=== PATIENT | female | born 1950 | race Caucasian/White ===

== ENCOUNTER 2017-05-15 06:32 | Emergency (ER) | payer SELFPAY ==
[~2017-05-15] VITALS: Ht 167.6 cm; Wt 110.0 kg
[~2017-05-15 06:32] MED LIST: GLUCTAB PO; LEVO.025 PO; LISI-366 PO; PERC5TAB12 PO; SENO8.6T6 PO; TAB-TAB PO; TAMS0.4C67 PO; ZOFR4TAB3 SL
[2017-05-15 06:38] VITALS: BP 211/95; PULSE 99; RESP 20; TEMP 98.4; O2SAT 97
[2017-05-15] MEDS ORDERED: SODIUM CHLOR 0.9% 1000 ML INJ 1,000 ML IV SCH (07:11)
[2017-05-15] MEDS ORDERED: ONDANSETRON HCL 4 MG/2 ML VIAL IVP ONE (07:15)
[2017-05-15] MEDS ORDERED: KETOROLAC TROMETHAMINE 30 MG/ML (IVP) VIAL IVP ONE (07:15)
[2017-05-15] MEDS ORDERED: SODIUM CHLORIDE 0.9% FLUSH 10 ML FLUSH IV FLUSH PRN (07:15)
--- NOTE | 2017-05-15 07:22 | PD ---
HPI Chief Complaint: Flank/Kidney Pain Time Seen by Provider: 07:11 Travel History International Travel<30 days: No Contact w/Intl Traveler<30days: No Traveled to known affect area: No History of Present Illness HPI 66 y/o female presents with left flank pain and nausea that has been present for the past couple of days. She states she had a kidney stone once before about 3 years ago and does not know if that is what is going on but she is also having nausea and upper abdominal pain. She denies any other concurrent complaints. Quality is pressure. Severity is moderate. She denies specific modifying factors. She states that when she had a kidney stone before it passed on its own. She denies specific migration of the pain. PFSH Past Medical History Arthritis: Yes Anxiety: No Cancer: Yes (BCC) High Cholesterol: Yes Diabetes: Yes Diminished Hearing: No Endocrine: Yes Gastrointestinal Disorders: Yes (GERD) GERD: Yes Genitourinary: No Hepatitis: No Hiatal Hernia: Yes Hypertension: Yes Immune Disorder: No Musculoskeletal: Yes (ARTHRITIS; BACK AND NECK) Neurologic: No Psychiatric: No Reproductive: No Respiratory: No Migraines: Yes (ok now) Thyroid Disease: Yes Menopausal: Yes Past Surgical History Abdominal Surgery: Yes (APPENDECTOMY; 04/01 [facility] GASTRIC BY-PASS with Dr. Barraza) Appendectomy: Yes Section: Yes Gynecologic Surgery: Yes ( ; TUBAL LIGATION) Joint Replacement: Yes (left knee) Oral Surgery: Yes (T&A) Pacemaker: No Other Surgery: Yes Social History Alcohol Use: No Tobacco Use: No Substance Use: No Allergies-Medications (Allergen,Severity, Reaction): Coded Allergies: morphine (Unverified Allergy, Severe, INTENSE ITCHING, 05/15/17) adhesive (Unverified Allergy, Intermediate, Rash, 05/15/17) Reported Meds & Prescriptions Reported Meds & Active Scripts Active [place] (Hydrocodone-Acetaminophen) 5 Mg-325 Mg Tab 1 Tab PO Q6H PRN Review of Systems Except as stated in HPI: all other systems reviewed are Neg Physical Exam Narrative GENERAL: 66-year-old female in no apparent distress SKIN: Focused skin assessment warm/dry. HEAD: Atraumatic. Normocephalic. EYES: No scleral icterus. No injection or drainage. ENT: No nasal bleeding or discharge. Mucous membranes pink and moist. NECK: Trachea midline. No JVD. CARDIOVASCULAR: Regular rate and rhythm. RESPIRATORY: No accessory muscle use. Clear to auscultation. Breath sounds equal bilaterally. GASTROINTESTINAL: Abdomen soft, tender upper abdomen, nondistended. MUSCULOSKELETAL: No obvious deformities. No clubbing. No cyanosis. No edema back: No CVA tenderness. No midline pain NEUROLOGICAL: Awake and alert. No obvious cranial nerve deficits. Motor grossly within normal limits. Normal speech. PSYCHIATRIC: Appropriate mood and affect; insight and judgment normal. Data Data Last Documented VS Vital Signs Date Time Temp Pulse Resp B/P (MAP) Pulse Ox O2 Delivery O2 Flow Rate FiO2 05/15/17 08:50 05/15/17 08:35 79 16 95 Room Air 05/15/17 06:38 98.4 Orders Orders Complete Blood Count With Diff (05/15/17 07:11) Comprehensive Metabolic Panel (05/15/17 07:11) Lipase (05/15/17 07:11) Urinalysis - C+S If Indicated (05/15/17 07:11) Ct Abd/Pel W/O Iv Contrast (05/15/17 07:11) Iv Access Insert/Monitor (05/15/17 07:11) Ecg Monitoring (05/15/17 07:11) Oximetry (05/15/17 07:11) NPO (05/15/17 07:11) Ondansetron Inj (Zofran Inj) (05/15/17 07:15) Sodium Chlor 0.9% 1000 Ml Inj (Ns 1000 M (05/15/17 07:11) Sodium Chloride 0.9% Flush (Ns Flush) (05/15/17 07:15) Ketorolac Inj (Toradol Inj) (05/15/17 07:15) Acetamin-Hydrocod 325-5 Mg ([place] 5-325 (05/15/17 08:00) Ed Discharge Order (05/15/17 08:22) Labs Laboratory Tests Test 05/15/17 07:15 White Blood Count 11.9 TH/MM3 Red Blood Count 4.58 MIL/MM3 Hemoglobin 13.0 GM/DL Hematocrit 38.9 % Mean Corpuscular Volume 84.8 FL Mean Corpuscular Hemoglobin 28.4 PG Mean Corpuscular Hemoglobin Concent 33.5 % Red Cell Distribution Width 13.6 % Platelet Count 279 TH/MM3 Mean Platelet Volume 7.9 FL Neutrophils (%) (Auto) 90.5 % Lymphocytes (%) (Auto) 3.9 % Monocytes (%) (Auto) 5.2 % Eosinophils (%) (Auto) 0.1 % Basophils (%) (Auto) 0.3 % Neutrophils # (Auto) 10.8 TH/MM3 Lymphocytes # (Auto) 0.5 TH/MM3 Monocytes # (Auto) 0.6 TH/MM3 Eosinophils # (Auto) 0.0 TH/MM3 Basophils # (Auto) 0.0 TH/MM3 CBC Comment DIFF FINAL Differential Comment Urine Collection Type VOIDED Urine Color YELLOW Urine Turbidity CLEAR Urine pH 6.0 Urine Specific [place] 1.017 Urine Protein NEG mg/dL Urine Glucose (UA) NEG mg/dL Urine Ketones NEG mg/dL Urine Occult Blood SMALL Urine Nitrite NEG Urine Bilirubin NEG Urine Leukocyte Esterase NEG Urine RBC 0-3 /hpf Urine WBC 0-2 /hpf Urine Squamous Epithelial Cells 0-2 /hpf Microscopic Urinalysis Comment CULT NOT INDICATED Blood Urea Nitrogen 18 MG/DL Creatinine 0.98 MG/DL Random Glucose 156 MG/DL Total Protein 7.9 GM/DL Albumin 3.9 GM/DL Calcium Level 8.9 MG/DL Alkaline Phosphatase 92 U/L Aspartate Amino Transf (AST/SGOT) 14 U/L Alanine Aminotransferase (ALT/SGPT) 20 U/L Total Bilirubin 0.5 MG/DL Sodium Level 136 MEQ/L Potassium Level 3.5 MEQ/L Chloride Level 101 MEQ/L Carbon Dioxide Level 27.6 MEQ/L Anion Gap 7 MEQ/L Estimat Glomerular Filtration Rate 57 ML/MIN Lipase 150 U/L [facility] Medical Decision Making Medical Screen Exam Complete: Yes Emergency Medical Condition: Yes Medical Record Reviewed: Yes (Past history confirmed) Interpretation(s) CBC & BMP Diagram 05/15/17 07:15 Total Protein 7.9, Albumin 3.9, Calcium Level 8.9, Alkaline Phosphatase 92, Aspartate Amino Transf (AST/SGOT) 14 L, Alanine Aminotransferase (ALT/SGPT) 20, Total Bilirubin 0.5 ct with 5 by 6 mm upj stone on left-given copy for follow up ua no signs of infection Differential Diagnosis Kidney stone, gastritis, gastroenteritis, adhesion Narrative Course We will check blood work, urinalysis, CT scan abdominal pelvis and dosed with Zofran and Toradol and reevaluate ed workup with left upj stone, will dose with norco for further pain control and reevaluate Patient denies any new complaints and states that they are feeling better. Patient happy with care, all questions answered. Patient knows that follow up is incumbent on them and to return to the emergency room immediately if new or worsening symptoms develop. Patient given strict return precautions, vitals reviewed and are normal, agrees to further workup as an outpatient and feels comfortable arranging on her own. Diagnosis Primary Impression: Kidney stone Referrals: Urologist call for appointment next 1-3 days Patient Instructions: General Instructions Additional Instructions: return as needed, keep hydrated Med/Other Pt SpecificInfo: Prescription(s) given Scripts Hydrocodone-Acetaminophen ([place]) 5 Mg-325 Mg Tab 1 TAB PO Q6H Y for PAIN, #15 TAB 0 Refills Prov: Yolis Treviño MD 05/15/17 Disposition: DISCHARGE HOME Condition: Stable Yolis Treviño MD May 15, 2017 07:22
[2017-05-15 07:25] VITALS: BP 200/104; PULSE 96; RESP 20; O2SAT 97
[2017-05-15 07:30] LABS: BILIRUBIN, URINE NEG (NEG); BLOOD, URINE SMALL (NEG); GLUCOSE,URINE NEG (NEG); KETONE, URINE NEG (NEG); NITRITE,URINE NEG (NEG); URINE LEUKOCYTE ESTERASE NEG (NEG)
[2017-05-15 07:31] LABS: AUTOMATED NEUTROPHIL # 10.8 TH/MM3 (1.8-7.7); BASOPHIL % 0.3 % (0.0-2.0); EOSINOPHIL % 0.1 % (0.0-4.0); HEMATOCRIT 38.9 % (35.0-46.0); LYMPH % 3.9 % (9.0-44.0); LYMPHOCYTE # 0.5 TH/MM3 (1.0-4.8); MEAN CELL VOLUME 84.8 FL (80.0-100.0); MEAN CORPUSCULAR HEMOGLOBIN 28.4 PG (27.0-34.0); MEAN CORPUSCULAR HGB CONC 33.5 % (32.0-36.0); MEAN PLATELET VOLUME 7.9 FL (7.0-11.0); MONO % 5.2 % (0.0-8.0); MONOCYTE # 0.6 TH/MM3 (0-0.9); NEUT % 90.5 % (16.0-70.0); PLATELET COUNT 279 TH/MM3 (150-450); RED BLOOD COUNT 4.58 MIL/MM3 (4.00-5.30); RED CELL DISTRIBUTION WIDTH 13.6 % (11.6-17.2); WHITE BLOOD COUNT 11.9 TH/MM3 (4.0-11.0)
[2017-05-15 07:37] LABS: CHLORIDE 101 MEQ/L (98-107); SODIUM (NA) 136 MEQ/L (136-145)
[2017-05-15 07:40] LABS: CALCIUM 8.9 MG/DL (8.5-10.1); GLUCOSE,RANDOM 156 MG/DL (74-106)
[2017-05-15 07:41] LABS: ALBUMIN 3.9 GM/DL (3.4-5.0); BICARBONATE 27.6 MEQ/L (21.0-32.0); BLOOD UREA NITROGEN 18 MG/DL (7-18)
[2017-05-15 07:44] LABS: ALT (GPT) 20 U/L (10-53); AST (GOT) 14 U/L (15-37); CREATININE 0.98 MG/DL (0.50-1.00); GLOMERULAR FILTRATION RATE 57 ML/MIN (>89)
[2017-05-15 07:45] LABS: TOTAL BILIRUBIN ADULT 0.5 MG/DL (0.2-1.0)
[2017-05-15 07:46] LABS: TOTAL PROTEIN 7.9 GM/DL (6.4-8.2)
[2017-05-15 07:47] LABS: ALKALINE PHOSPHATASE 92 U/L (45-117); RBC, URINE 0-3 /hpf (0-3); URINE COLOR YELLOW (YELLW/STRAW); WBC, URINE 0-2 /hpf (0-5)
[2017-05-15 07:48] LABS: SQUAMOUS EPITHELIAL CELL URINE 0-2 /hpf (0-5)
--- NOTE | 2017-05-15 07:48 | RADRPT ---
EXAM DATE/TIME: 05/15/2017 07:26 [facility] COMPARISON: No previous studies available for comparison. INDICATIONS : Left flank pain. ORAL CONTRAST: No oral contrast ingested. RADIATION DOSE: 20.95 CTDIvol (mGy) MEDICAL HISTORY : Gastroesophageal reflux disease. Hypertension. Diabetes. SURGICAL HISTORY : Appendectomy. Gastric bypass. section. ENCOUNTER: Initial ACUITY: 1 day PAIN SCALE: 8/10 LOCATION: Left flank TECHNIQUE: Volumetric scanning of the abdomen and pelvis was performed. Using automated exposure control and ad justment of the mA and/or kV according to patient size, radiation dose was kept as low as reasonably achievable to obtain optimal diagnostic quality images. DICOM format image data is available electro nically for review and comparison. FINDINGS: LOWER LUNGS: The visualized lower lungs are clear. LIVER: Homogeneous density without lesion. There is no dilation of the biliary tree. No calcified gallston es. SPLEEN: Normal size without lesion. PANCREAS: Within normal limits. KIDNEYS: Normal in size and shape. There is no mass, stone, or hydronephrosis on the right. Mild obstructive uropathy on the left secondary to the left ureteropelvic junction calculus measuring 5 x 6 mm. There are lisa-renal inflammatory changes on the left.. ADRENAL GLANDS: Within normal limits. VASCULAR: There is no aortic aneurysm. BOWEL/MESENTERY: The small bowel, and colon demonstrate no acute abnormality. Postsurgical changes involving the stoma ch. There is no free intraperitoneal air or fluid. ABDOMINAL WALL: Within normal limits. RETROPERITONEUM: There is small retroperitoneal lymphadenopathy. BLADDER: No wall thickening or mass. REPRODUCTIVE: Within normal limits. INGUINAL: There is no lymphadenopathy or hernia. MUSCULOSKELETAL: Within normal limits for patient age. CONCLUSION: 1. Obstructive uropathy on the left secondary to a left-sided ureteropelvic junction calculus measuri ng 5 x 6 mm. 2. Postsurgical changes involving the stomach. Kane Aggarwal MD on May 15, 2017 at 7:45 Board Certified Radiologist. This report was verified electronically.
[2017-05-15] MEDS ORDERED: ACETAMINOPHEN/HYDROcodone 325 MG/5 MG TAB PO ONE (08:00)
[2017-05-15 08:08] VITALS: BP 197/109; PULSE 87; RESP 16; O2SAT 97
[2017-05-15] MEDS ORDERED: NORC5TAB PO (08:22)
[2017-05-15 08:35] VITALS: BP 171/88; PULSE 79; RESP 16; O2SAT 95
== END 2017-05-15 08:50 | disposition home or self-care (01) ==
LOC: PHED 06:32
DX: N20.1 Calculus of ureter (principal); M19.90 Unspecified osteoarthritis, unspecified site; E78.00 Pure hypercholesterolemia, unspecified; K21.9 Gastro-esophageal reflux disease without esophagitis; I10 Essential (primary) hypertension; E11.9 Type 2 diabetes mellitus without complications; E07.9 Disorder of thyroid, unspecified; Z87.442 Personal history of urinary calculi
CPT/HCPCS: 74176; 80053; 81001; 83690; 85025; 96361; 96374; 96375; 99284; J1885; J2405; J7030